=== PATIENT | male | born 1965 | race Caucasian/White ===

== ENCOUNTER 2021-04-16 07:41 | Day surgery (SDCO) | payer OTHER ==
[~2021-04-16] VITALS: Ht 182.9 cm; Wt 114.4 kg
[2021-04-16 08:05] LABS: BASOPHIL 0.7 % (0-2); EOSINOPHIL 2.1 % (0-5); HCT 41.6 % (42.0-52.0); HGB 14.2 g/dl (13.2-18.0); LYMPHOCYTE 15.9 % (15-48); MCH 29.6 pg (25.0-31.0); MCHC 34.1 g/dL (32.0-36.0); MCV 86.8 fL (78.0-100.0); MONOCYTE 9.2 % (0-12); NEUTROPHIL 71.8 % (41-80); NRBC 0; PLT 296 K/uL (150-400); RBC 4.79 M/uL (4.70-6.00); RDW 12.8 % (11.5-14.0); WBC 12.2 K/uL (4.0-10.5)
[2021-04-16 08:16] LABS: INR 1.02 (0.9-1.2); PROTHROMBIN TIME 12.8 SECONDS (11.8-13.4); PTT 28.5 SECONDS (24.4-34.7)
[2021-04-16 08:17] LABS: D-DIMER 2.53 ug/mLFEU (0.00-0.41)
[2021-04-16 08:23] LABS: ALBUMIN 4.1 g/dL (3.4-5.0); BILIRUBIN - TOTAL 0.6 mg/dL (0.2-1.0); BUN/CREAT RATIO (CALC) 22.3 RATIO; CREATININE 0.94 mg/dL (0.67-1.17); GLOBULIN (CALCULATION) 3.9 g/dL; POTASSIUM 3.7 mmol/L (3.5-5.1)
[2021-04-16 09:23] LABS: LACTIC ACID 0.8 mmol/L (0.4-1.9)
[2021-04-16] MEDS ORDERED: LISINOPRIL-HCT1 EAC2 PO (16:19)
[2021-04-17 06:01] LABS: BASOPHIL 0.6 % (0-2); EOSINOPHIL 5.9 % (0-5); HCT 42.6 % (42.0-52.0); HGB 13.9 g/dl (13.2-18.0); LYMPHOCYTE 22.3 % (15-48); MCH 29.7 pg (25.0-31.0); MCHC 32.6 g/dL (32.0-36.0); MONOCYTE 12.3 % (0-12); MPV 10.1 fL (6.0-9.5); NEUTROPHIL 58.4 % (41-80); PLT 287 K/uL (150-400); RBC 4.68 M/uL (4.70-6.00); RDW 13.3 % (11.5-14.0); WBC 8.6 K/uL (4.0-10.5)
[2021-04-17 07:32] LABS: BAND 2 % (0-10); EOSINOPHIL(M) 8 % (0-5); LYMPHOCYTE(M) 22 % (15-48); MONOCYTE(M) 10 % (0-12); NEUTROPHILS(M) 54 % (41-80); TOTAL CELL COUNT 100; VARIANT LYMPHOCYTE 4
[2021-04-17 07:33] LABS: NRBC 0; PLATELET ESTIMATE NORMAL; PLATELET MORPHOLOGY CLUMPING
[2021-04-17] MEDS ORDERED: ELIQUIS5 MG PO (15:46)
[2021-04-17] MEDS ORDERED: PERCOCET 5-3251 EACH PO (15:46)
[2021-04-17] MEDS ORDERED: ZOFRAN4 M1 PO (15:46)
[2021-04-17] MEDS ORDERED: XARELTO15 MG PO (16:32)
== END 2021-04-17 17:00 | disposition home or self-care (01) ==
LOC: FER 07:41 → FMS 10:41
PROVIDERS: Emergency Medicine; ADMIT Internal Medicine
DX: I26.99 Other pulmonary embolism without acute cor pulmonale (principal); R91.1 Solitary pulmonary nodule; D17.79 Benign lipomatous neoplasm of other sites; I10 Essential (primary) hypertension; F17.210 Nicotine dependence, cigarettes, uncomplicated; Z79.899 Other long term (current) drug therapy; Z20.822 Contact with and (suspected) exposure to COVID-19
CPT/HCPCS: 36415; 36600; 71045; 71275; 74150; 80053; 82803; 83605; 83880; 84484; 85025; 85379; 85610; 85730; 87040; 93005; G0378; J1170; J1644; J1650; J2270; J2405; Q9967; U0002

== ENCOUNTER 2021-06-28 07:20 | Emergency (ER) | payer OTHER ==
[~2021-06-28 07:20] MED LIST: ELIQUIS5 MG PO; LISINOPRIL-HCT1 EAC2 PO; PERCOCET 5-3251 EACH PO; XARELTO15 MG PO; ZOFRAN4 M1 PO
[2021-06-28] MEDS ORDERED: RELISTOR150 MG PO (09:31)
[2021-06-28] MEDS ORDERED: MIRALAX17 GM PO (09:31)
[2021-06-28] MEDS ORDERED: SENNA-S 8.6-501 EACH PO (09:31)
== END 2021-06-28 09:56 | disposition home or self-care (01) ==
LOC: FER 07:20
DX: K59.03 Drug induced constipation (principal); T40.2X5A Adverse effect of other opioids, initial encounter; F17.210 Nicotine dependence, cigarettes, uncomplicated
CPT/HCPCS: 74018